=== PATIENT | male | born 1960 | race Caucasian/White ===

== ENCOUNTER 2017-05-24 13:24 | Emergency (ER) | payer OTHER ==
[~2017-05-24] VITALS: Ht 170.2 cm; Wt 86.2 kg
[2017-05-24] MEDS ORDERED: Duoneb 2.5-0.5 M3 ML INH (14:05)
[2017-05-24] MEDS ORDERED: PRED20 PO (14:05)
[2017-05-24] MEDS ORDERED: Vibramycin100 MG PO (14:05)
[2017-05-24] MEDS ORDERED: AEROECLIPSE II1 EACH INH (14:09)
== END 2017-05-24 14:19 | disposition home or self-care (01) ==
LOC: ER 13:24
DX: J44.1 Chronic obstructive pulmonary disease with (acute) exacerbation (principal); F17.200 Nicotine dependence, unspecified, uncomplicated
CPT/HCPCS: 71046; 94640; 99284

== ENCOUNTER 2019-01-28 08:12 | Emergency (ER) | payer OTHER ==
[~2019-01-28] VITALS: Ht 170.2 cm; Wt 94.8 kg
[~2019-01-28 08:12] MED LIST: AEROECLIPSE II1 EACH INH; Duoneb 2.5-0.5 M3 ML INH; PRED20 PO; Vibramycin100 MG PO
[2019-01-28] MEDS ORDERED: Cyclobenzaprine5 MG PO (08:33)
== END 2019-01-28 09:10 | disposition home or self-care (01) ==
LOC: ER 08:12
DX: M54.5 Low back pain (principal); Z79.899 Other long term (current) drug therapy; Z79.52 Long term (current) use of systemic steroids; F17.200 Nicotine dependence, unspecified, uncomplicated
CPT/HCPCS: 99283

== ENCOUNTER 2022-03-16 17:02 | Inpatient (IN) | payer OTHER ==
[~2022-03-16] VITALS: Ht 170.2 cm; Wt 88.4 kg
[~2022-03-16 17:02] MED LIST changes: +ATOR10 PO; +Aspir 8181 MG PO; +Bisoprolol Fumar5 MG PO; +CLOP75 PO; +Cyclobenzaprine5 MG PO; +IBUP600 PO; +LEVO750 PO; +LISI10 PO; +Percocet 5-3251 EACH PO
[2022-03-16 17:47] LABS: Hematocrit 39.7 % (37.0-53.0); Hemoglobin 14.6 g/dL (13.5-17.5); Mean Corpuscular HGB 29.9 pg (26.0-34.0); Mean Corpuscular HGB Conc 36.8 g/dL (31.5-36.5); Mean Corpuscular Volume 81 fL (80-100); Mean Platelet Volume 9.3 fL (9.1-12.4); NRBC ABSOLUTE 0.03 K/mm3 (0.00-0.02); NRBC Auto 0.2 /100 WBC (0.0-0.2); Platelet Count 263 K/mm3 (150-400); RDW Standard Deviation 44.6 fL (35.1-46.3); Red Blood Cell Count 4.89 M/mm3 (4.30-5.90); White Blood Cell Count 19.19 K/mm3 (4.00-11.30)
[2022-03-16 18:16] LABS: BAND PERCENT MAN 7 % (0-8); BASOPHILS PERCENT MAN 0 % (0-2); EOSINOPHILS PERCENT MAN 0 % (0-6); LYMPHOCYTES ABSOLUTE MAN 0.76 K/mm3 (0.84-5.20); LYMPHOCYTES PERCENT MAN 4 % (21-46); MONOCYTES ABSOLUTE MAN 1.91 K/mm3 (0.16-1.47); MONOCYTES PERCENT MAN 10 % (4-13); SEG NEUTROPHILS PERCENT MAN 79 % (41-73); TOTAL CELLS COUNTED 100
[2022-03-16 18:18] LABS: Albumin, Blood 2.7 g/dL (3.4-5.0); Albumin/Globulin Ratio 0.6 (0.8-1.8); Bun/Creatinine Ratio 18.5 (12.0-20.0); Calcium, Blood 8.8 mg/dL (8.5-10.1); Creatinine, Blood 0.65 mg/dL (0.60-1.20); Globulin, Blood 4.6 g/dL (2.2-4.0); Potassium, Blood 3.9 mmol/L (3.5-5.5); Total Protein, Blood 7.3 g/dL (6.4-8.2)
[2022-03-16 18:18] LABS: Influenza A, PCR NEGATIVE (NEGATIVE); Influenza B, PCR NEGATIVE (NEGATIVE); Resp Syncytial Virus, PCR NEGATIVE (NEGATIVE); SARS-Cov-2 (COVID-19) PCR, MMC NEGATIVE (NEGATIVE)
[2022-03-16 18:23] LABS: Base Excess Venous -0.1 mmol/L; Bicarbonate Venous 25.2 mmol/L (24.0-30.0); PCO2 Venous 29.4 mmHg (38-42)
[2022-03-16 20:38] LABS: Source, Urine Clean Catch
[2022-03-16 20:43] LABS: Blood, Urine 4+ (Neg); Glucose Qualitative, Urine Neg (Neg); Ketones, Urine 3+ (Neg); Leukocyte Esterase, Urine 1+ (Neg); Nitrite, Urine Neg (Neg); Protein, Urine 3+ (Neg); Urobilinogen, Urine 4+ (Normal)
[2022-03-16 20:58] LABS: Appearance, Urine Clear (Clear); Bilirubin, Urine 2+ (Neg); Color, Urine Amber (P-Yellow)
[2022-03-16 21:00] LABS: Bacteria Few /hpf; Red Blood Cells, Urine 0-2 /hpf (0-2); Squamous Epithelial Cells Rare /hpf (Few); White Blood Cells, Urine 0-2 /hpf (0-5)
--- NOTE | 2022-03-16 21:20 | NUR ---
ARRIVAL TO PCU6 PT ARRIVED TO PCU6 AT APPROXIMATELY 2115. PT TRANSFERED FROM ER [facility] TO HOSPITAL BED WITH 1 PERSON ASSIST STAND-PIVOT. PT A&Ox3, SLIGHTLY LETHARGIC, STATES IT IS 03/19/22, IS ABLE TO APPROPRIATELY STATE WHERE HE IS AND WHY HE IS HERE. PT ARRIVED ON RA, SpO2 89-91%, PT REPORTED MILD SOB, PLACED PT ON 2L VIA NC, SpO2 INCREASED TO >92%. NOTIFIED RT THAT PT REQUESTED A BREATHING TREATMENT. VSS, BP ELEVATED WITH SBP 150's, ST 100-110's WITH 1ST DEGREE HB, PT DENIES CP/PRESSURE. SPENT 1 HOUR AT PT's BEDSIDE DOING THE ADMISSION SCREENING/HX/ASSESSMENT. ORIENTED PT TO ROOM/UNIT, CALL LIGHT AND HOSPITAL PHONE. BED IN LOWEST POSITION, BED ALARM ON.
[2022-03-17 00:01] LABS: International Normalized Ratio 1.34; Prothrombin Time Results 13.8 Sec (9.7-11.5)
[2022-03-17 00:12] LABS: Free Thyroxine 1.4 ng/dL (0.70-1.60); Thyroid Stimulating Hormone 0.118 uIU/mL (0.360-4.800)
[2022-03-17 00:15] LABS: Bun/Creatinine Ratio 16.4 (12.0-20.0); Creatinine, Blood 0.61 mg/dL (0.60-1.20); Potassium, Blood 3.8 mmol/L (3.5-5.5)
--- NOTE | 2022-03-17 01:06 | NUR ---
UPDATE CALL TO PHYSICIAN TO UPDATE ON CRITICAL LAB VALUE OF Na: 118, ALSO NOTIFIED THAT PT's CIWA WAS 13 AND PT TOLERATED PO LIBRIUM PER EMAR. NO NEW ORDERS AT THIS TIME.
--- NOTE | 2022-03-17 05:17 | NUR ---
SHIFT SUMMARY PT A&Ox3, SLIGHTLY LETHARGIC, STATES IT IS 03/20/22, THOUGH HE IS ABLE TO APPROPRIATELY STATE WHERE HE IS AND WHY HE IS HERE. VSS. BP STABLE, SINUS TACH 100-100's WITH 1st DEGREE HB, DENIES CP/PRESSURE. Sp02> 92% 2L VIA NC, DENIES SOB. PT WITH OCCASIONAL PRODUCTIVE COUGH, MEDICATED WITH PRN TESSALON. CIWA's RANGING FROM 6-13 THIS SHIFT, MANAGING PER EMAR. PT CONTINENT OF URINE AND BOWEL, USES URINAL IND IN BED. PT IS 1 PERSON ASSIST WITH FWW FOR TRANSFERS, SLIGHTLY UNSTEADY ON FEET. BED IN LOWEST POSITION, BED ALARM ON. NO OTHER EVENTS THIS SHIFT, SEE PREVIOUS NOTES. WILL REPORT TO DAY SHIFT RN.
[2022-03-17 05:39] LABS: Hematocrit 36.3 % (37.0-53.0); Mean Corpuscular HGB Conc 35.8 g/dL (31.5-36.5); Mean Corpuscular Volume 84 fL (80-100); Mean Platelet Volume 9.7 fL (9.1-12.4); Platelet Count 192 K/mm3 (150-400); RDW Coefficient Variation 15.1 % (11.7-14.2); RDW Standard Deviation 45.5 fL (35.1-46.3); Red Blood Cell Count 4.34 M/mm3 (4.30-5.90)
[2022-03-17 06:06] LABS: Albumin, Blood 2.2 g/dL (3.4-5.0); Albumin/Globulin Ratio 0.5 (0.8-1.8); Bilirubin, Total 2.3 mg/dL (0.1-1.0); Bun/Creatinine Ratio 18.8 (12.0-20.0); Calcium, Blood 8.3 mg/dL (8.5-10.1); Creatinine, Blood 0.53 mg/dL (0.60-1.20); Globulin, Blood 4.2 g/dL (2.2-4.0); Potassium, Blood 3.8 mmol/L (3.5-5.5); Total Protein, Blood 6.4 g/dL (6.4-8.2)
[2022-03-17 06:18] LABS: BAND PERCENT MAN 47 % (0-8); BASOPHILS PERCENT MAN 0 % (0-2); EOSINOPHILS PERCENT MAN 0 % (0-6); LYMPHOCYTES ABSOLUTE MAN 0.13 K/mm3 (0.84-5.20); LYMPHOCYTES PERCENT MAN 1 % (21-46); MONOCYTES ABSOLUTE MAN 0.78 K/mm3 (0.16-1.47); MONOCYTES PERCENT MAN 6 % (4-13); MYELOCYTE ABSOLUTE MAN 0.13 K/mm3 (0.00-0.00); MYELOCYTE PERCENT MAN 1 % (0-0); NEUTROPHILS ABSOLUTE MAN 12.05 K/mm3 (1.96-9.15); SEG NEUTROPHILS PERCENT MAN 45 % (41-73); TOTAL CELLS COUNTED 100
--- NOTE | 2022-03-17 06:56 | NUR ---
UPDATE JADENAN CALLED TO INSTRUCT THIS RN TO STOP NS Gtt D/T Na CORRECTING TOO QUICKLY. NS IS IN STANDBY MODE NOW.
[2022-03-17 08:10] LABS: Base Excess Venous 1.5 mmol/L; Bicarbonate Venous 25.4 mmol/L (24.0-30.0); pH Blood Venous 7.41 (7.34-7.37)
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
--- NOTE | 2022-03-17 11:12 | NUR ---
CARE ASSUMPTION THIS RN ASSUMED CARE FROM JAVON BEYER AT 0700. VSS. TELE [place]. PATIENT IS ALERT AND ORIENTED TO PLACE, EVENT, MONTH, YEAR, BUT STATED IT WAS MARCH 21. PATIENT REPORTS NO CHEST PAIN/PRESSURE. PATIENT REPORTS NO PAIN. PATIENT REPORTS NO SHORTNESS OF BREATH. SEE SHIFT ASSESSMENT FOR FURTHER DETAILS. PATIENT ABLE TO PERFORM OWN ADLS. PATIENT IS A STAND BY ASSIST WITH MINIMAL ASSISTANCE. PATIENT UNDERSTANDS THE PLAN OF CARE. CIWA 4 THIS AM. PATIENT SITTING IN BEDSIDE CHAIR. CALL LIGHT WITHIN REACH. WILL CONTINUE TO MONITOR AND PROVIDE CARE.
[2022-03-17 12:00] LABS: Bun/Creatinine Ratio 15.2 (12.0-20.0); Calcium, Blood 8.8 mg/dL (8.5-10.1); Creatinine, Blood 0.66 mg/dL (0.60-1.20); Potassium, Blood 3.9 mmol/L (3.5-5.5)
[2022-03-17 17:37] LABS: U Amphetamine Screen Not Detected; U Barbituate Screen Not Detected; U Benzodiazapine Screen DETECTED; U Buprenorphine Screen Not Detected; U Cannabinoids Screen Not Detected; U Cocaine Screen Not Detected; U Methadone Screen Not Detected; U Methamphetamine Screen Not Detected; U Opiates Screen Not Detected; U Oxycodone Screen Not Detected; U Phencyclidine Screen Not Detected; U Propoxyphene Screen Not Detected
[2022-03-17 17:39] LABS: Bun/Creatinine Ratio 26.5 (12.0-20.0); Creatinine, Blood 0.64 mg/dL (0.60-1.20); Potassium, Blood 3.7 mmol/L (3.5-5.5)
--- NOTE | 2022-03-17 18:27 | NUR ---
SHIFT SUMMARY PATIENT NEURO REMAINS INTACT. NO ACUTE CHANGES THIS SHIFT. VSS. CALL LIGHT WITHIN REACH AND SITTING IN CHAIR. PATIENT REQUESTED TO TAKE A SHOWER BEFORE BED THIS EVENING WILL PASS ON TO NEXT REPORT. WILL CONTINUE TO MONITOR AND PROVIDE CARE UNTIL HAND OFF WITH NEXT SHIFT.
--- NOTE | 2022-03-17 19:35 | NUR ---
ASSUMED CARE. AOX3 SITTING UP IN CHAIR, DENIES ANY PAIN OR DISCOMFORT. VERY PLEASANT AND COOPERATIVE. ABLE TO MAKE NEEDS KNOWN. NO TREMORS NOTED, BUT IS SLIGHTLY UNSTEADY ON HIS FEET. CIWA LOW. HE STATES HE HAS QUIET DRINKING SEVERAL TIMES AND NEVER HAD WITHDRAWL SYMPTOMS. ENCOURAGE DRINKING OF FLUIDS, CURRENTLY HAS LOW BP BUT MAP IS >65. LS COARSE, PRODUCTIVE COUGH THICK BRENNER SPUTUM. MILD SOB. SINUS ON MONITOR. DENIES ANY CHEST PAIN. GOOD APPETITE. ABLE TO USE URINAL INDEPENDENTLY. WILL CONTINUE TO MONITOR.
--- NOTE | 2022-03-17 21:00 | NUR ---
SPOKE TO RESIDENT REGARDING DROP IN BP. SHE WILL HOLD TOMORROWS BP MEDS IN AM. IF BP CONTINUES TO DROP T/O NIGHT SHE WANTS A CALL BACK.
[2022-03-17 23:16] LABS: Bun/Creatinine Ratio 33.6 (12.0-20.0); Calcium, Blood 8.6 mg/dL (8.5-10.1); Creatinine, Blood 0.6 mg/dL (0.60-1.20); Potassium, Blood 3.6 mmol/L (3.5-5.5)
--- NOTE | 2022-03-18 05:22 | NUR ---
SHIFT SUMMARY: PT CONTINUES TO REMAIN COOPERATIVE. CIWAS HAVE BEEN 0/10. HAS FOLLOWED DIRECTIONS AND USES CALL LIGHT. DID HAVE DROP IN BP TO THE 80'S, WAS MADE AWARE, WHICH SHE DC'D BLOOD PRESSURE MEDS FOR THIS AM. HIGHEST HE GOT WAS SBP 110. VS WNL. NO PAIN. LS REMAIN COARSE WITH THICK BRENNER SECRETIONS. STILL CONTINUES ON 2L NC WITH GOOD SATS. NO ACUTE CHANGES TO NOTE, CALL LIGHT IS IN REACH.
[2022-03-18 06:07] LABS: BASOPHILS ABSOLUTE AUTO 0.05 K/mm3 (0.00-0.23); BASOPHILS PERCENT AUTO 0 % (0-2); EOSINOPHILS ABSOLUTE AUTO 0.01 K/mm3 (0.00-0.68); EOSINOPHILS PERCENT AUTO 0 % (0-6); Hematocrit 34.6 % (37.0-53.0); Hemoglobin 12.3 g/dL (13.5-17.5); IMMATURE GRAN ABSOLUTE AUTO 0.18 K/mm3 (0.00-0.10); IMMATURE GRAN PERCENT AUTO 2 % (0-1); LYMPHOCYTES ABSOLUTE AUTO 0.79 K/mm3 (0.84-5.20); LYMPHOCYTES PERCENT AUTO 7 % (21-46); MONOCYTES PERCENT AUTO 9 % (4-13); Mean Corpuscular HGB 30.2 pg (26.0-34.0); Mean Corpuscular HGB Conc 35.5 g/dL (31.5-36.5); Mean Corpuscular Volume 85 fL (80-100); Mean Platelet Volume 9.9 fL (9.1-12.4); NEUTROPHILS ABSOLUTE AUTO 9.54 K/mm3 (1.96-9.15); NEUTROPHILS PERCENT AUTO 82 % (41-73); NRBC ABSOLUTE 0.02 K/mm3 (0.00-0.02); NRBC Auto 0.2 /100 WBC (0.0-0.2); Platelet Count 225 K/mm3 (150-400); RDW Coefficient Variation 15.2 % (11.7-14.2); RDW Standard Deviation 47.8 fL (35.1-46.3); Red Blood Cell Count 4.07 M/mm3 (4.30-5.90); White Blood Cell Count 11.67 K/mm3 (4.00-11.30)
[2022-03-18 06:25] LABS: Albumin/Globulin Ratio 0.5 (0.8-1.8); Bun/Creatinine Ratio 36.8 (12.0-20.0); Calcium, Blood 8.6 mg/dL (8.5-10.1); Creatinine, Blood 0.57 mg/dL (0.60-1.20); Globulin, Blood 4.3 g/dL (2.2-4.0); Potassium, Blood 3.8 mmol/L (3.5-5.5); Total Protein, Blood 6.3 g/dL (6.4-8.2)
[2022-03-18] MEDS ORDERED: AMOCLA875 PO (15:33)
[2022-03-18] MEDS ORDERED: AZIT500 PO (15:34)
[2022-03-18] MEDS ORDERED: PRED20 PO (15:36)
--- NOTE | 2022-03-18 16:03 | NUR ---
DISCHARGE/SHIFT SUMMARY THIS RN ASSUMED CARE AT 0700. VSS. PATIENT IS A/OX4. PERRLA. PATIENT REPORTS NO PAIN, CHEST PAIN/PRESSURE OR SHORTNESS OF BREATH. SEE SHIFT ASSESSMENT FOR FURTHER INFORMATION. PATIENT DISCHARGED AT 1600. THIS RN WENT OVER DISCHARGE EDUCATION AND THE IMPORTANCE TO FOLLOW UP WITH PRIMARY CARE PROVIDER. THIS RN WENT OVER ABX THAT THE PATIENT WILL BE TAKING. PATIENT AND PATIENT VERBALIZED UNDERSTANDING. PATIEINT LEFT VIA WHEELCHAIR AND IN NO DISTRESS. PATIENT HAD ALL BELONGINGS WHEN LEAVING.
== END 2022-03-18 15:54 | disposition home or self-care (01) | DRG 871 ==
LOC: ER 17:02 → PCU 19:11
PROVIDERS: Family Medicine; Physician Assistant; Student in an Organized Health Care Education/Training Program; ADMIT Internal Medicine
DX: A41.3 Sepsis due to Hemophilus influenzae (principal); J15.9 Unspecified bacterial pneumonia; J96.01 Acute respiratory failure with hypoxia; E22.2 Syndrome of inappropriate secretion of antidiuretic hormone; R65.20 Severe sepsis without septic shock; F15.10 Other stimulant abuse, uncomplicated; I10 Essential (primary) hypertension; E78.5 Hyperlipidemia, unspecified; I25.10 Atherosclerotic heart disease of native coronary artery without angina pectoris; F10.20 Alcohol dependence, uncomplicated; J43.9 Emphysema, unspecified; E86.0 Dehydration; J20.9 Acute bronchitis, unspecified; F17.210 Nicotine dependence, cigarettes, uncomplicated; Z20.822 Contact with and (suspected) exposure to COVID-19; Z23 Encounter for immunization; Z79.811 Long term (current) use of aromatase inhibitors; Z79.899 Other long term (current) drug therapy; Z79.82 Long term (current) use of aspirin; Z79.02 Long term (current) use of antithrombotics/antiplatelets; Z79.891 Long term (current) use of opiate analgesic; Z98.890 Other specified postprocedural states
CPT/HCPCS: 0241U; 36415; 71045; 80048; 80053; 81001; 82140; 82803; 83605; 83880; 84145; 84295; 84439; 84443; 84484; 85025; 85610; 87040; 87070; 87077; 87086; 87185; 87205; 90686; 93005; 93010; 94640; 94664; 94760; 96361; 96365; 96375; 99285-25; A9270; J0456; J0696; J1650; J2930; J3411; J7030; J7050

== ENCOUNTER 2022-07-30 01:08 | Emergency (ER) | payer OTHER ==
[~2022-07-30] VITALS: Ht 170.2 cm; Wt 86.2 kg
[~2022-07-30 01:08] MED LIST changes: +AMOCLA875 PO; +AZIT500 PO
[2022-07-30 01:47] LABS: BASOPHILS ABSOLUTE AUTO 0.06 K/mm3 (0.00-0.23); BASOPHILS PERCENT AUTO 1 % (0-2); EOSINOPHILS ABSOLUTE AUTO 0.16 K/mm3 (0.00-0.68); EOSINOPHILS PERCENT AUTO 3 % (0-6); Hematocrit 36.1 % (37.0-53.0); Hemoglobin 12.4 g/dL (13.5-17.5); IMMATURE GRAN PERCENT AUTO 0 % (0-1); LYMPHOCYTES ABSOLUTE AUTO 2.14 K/mm3 (0.84-5.20); LYMPHOCYTES PERCENT AUTO 42 % (21-46); MONOCYTES ABSOLUTE AUTO 0.62 K/mm3 (0.16-1.47); MONOCYTES PERCENT AUTO 12 % (4-13); Mean Corpuscular HGB 28.6 pg (26.0-34.0); Mean Corpuscular HGB Conc 34.3 g/dL (31.5-36.5); Mean Corpuscular Volume 83 fL (80-100); Mean Platelet Volume 9.5 fL (9.1-12.4); NEUTROPHILS ABSOLUTE AUTO 2.14 K/mm3 (1.96-9.15); NEUTROPHILS PERCENT AUTO 42 % (41-73); Platelet Count 150 K/mm3 (150-400); RDW Coefficient Variation 15.9 % (11.7-14.2); RDW Standard Deviation 48.8 fL (35.1-46.3); Red Blood Cell Count 4.33 M/mm3 (4.30-5.90); White Blood Cell Count 5.12 K/mm3 (4.00-11.30)
[2022-07-30 02:03] LABS: Albumin, Blood 3.4 g/dL (3.4-5.0); Albumin/Globulin Ratio 0.8 (0.8-1.8); Bilirubin, Total 0.7 mg/dL (0.1-1.0); Bun/Creatinine Ratio 7.7 (12.0-20.0); Calcium, Blood 8.4 mg/dL (8.5-10.1); Creatinine, Blood 0.65 mg/dL (0.60-1.20); Globulin, Blood 4.2 g/dL (2.2-4.0); Potassium, Blood 4.1 mmol/L (3.5-5.5); Total Protein, Blood 7.6 g/dL (6.4-8.2)
[2022-07-30 03:09] LABS: Base Excess Venous -0.7 mmol/L; PCO2 Venous 38.1 mmHg (38-42); pH Blood Venous 7.41 (7.34-7.37)
[2022-07-30 05:00] VITALS: BP 124/79
[2022-07-30] MEDS ORDERED: AZIT250 PO (05:42)
[2022-07-30] MEDS ORDERED: PRED20 PO (05:42)
== END 2022-07-30 05:53 | disposition home or self-care (01) ==
LOC: ER 01:08
PROVIDERS: Student in an Organized Health Care Education/Training Program
DX: R06.02 Shortness of breath (principal); R05.9 Cough, unspecified; J43.9 Emphysema, unspecified; F17.210 Nicotine dependence, cigarettes, uncomplicated; Z79.899 Other long term (current) drug therapy; Z79.82 Long term (current) use of aspirin; Z79.02 Long term (current) use of antithrombotics/antiplatelets
CPT/HCPCS: 36415; 71045; 80053; 82803; 83880; 84484; 85025; 93005; 93010; 94640; 94664; 99284-25; J7512

== ENCOUNTER 2023-02-03 09:21 | Emergency (ER) | payer OTHER ==
[~2023-02-03] VITALS: Ht 170.2 cm; Wt 86.2 kg
[~2023-02-03 09:21] MED LIST changes: +AZIT250 PO
[2023-02-03 10:23] VITALS: BP 120/77
[2023-02-03] MEDS ORDERED: HYDROCODONE-AC1 EA10 PO (11:54)
== END 2023-02-03 12:20 | disposition home or self-care (01) ==
LOC: ER 09:21
DX: S92.901A Unspecified fracture of right foot, initial encounter for closed fracture (principal); W01.0XXA Fall on same level from slipping, tripping and stumbling without subsequent striking against object, initial encounter; Z79.899 Other long term (current) drug therapy; Z79.82 Long term (current) use of aspirin; J43.9 Emphysema, unspecified; F17.210 Nicotine dependence, cigarettes, uncomplicated
CPT/HCPCS: 73630; 99283-25

== ENCOUNTER 2023-12-07 11:19 | Emergency (ER) | payer OTHER ==
[~2023-12-07] VITALS: Ht 170.2 cm; Wt 91.6 kg
[~2023-12-07 11:19] MED LIST changes: +ALBU90OI INH; +DERMACINRX FOL1 EAC2; +HYDROCODONE-AC1 EA10 PO; +INCRUSE ELLIPTA; +SYMBICORT 160-4.6 GM
[2023-12-07 11:41] VITALS: BP 125/85
== END 2023-12-07 14:23 | disposition home or self-care (01) ==
LOC: ER 11:19
DX: M79.604 Pain in right leg (principal); F17.210 Nicotine dependence, cigarettes, uncomplicated; I10 Essential (primary) hypertension; Z79.82 Long term (current) use of aspirin; Z79.02 Long term (current) use of antithrombotics/antiplatelets; Z79.899 Other long term (current) drug therapy
CPT/HCPCS: 73502; 93971; 99283-25

== ENCOUNTER 2024-02-03 21:42 | Observation (INO) | payer OTHER ==
[~2024-02-03] VITALS: Ht 182.9 cm; Wt 100.3 kg
[2024-02-03 22:40] LABS: BASOPHILS ABSOLUTE AUTO 0.04 K/mm3 (0.00-0.23); BASOPHILS PERCENT AUTO 1 % (0-2); EOSINOPHILS ABSOLUTE AUTO 0.19 K/mm3 (0.00-0.68); EOSINOPHILS PERCENT AUTO 3 % (0-6); Hematocrit 20.8 % (37.0-53.0); IMMATURE GRAN ABSOLUTE AUTO 0.02 K/mm3 (0.00-0.10); IMMATURE GRAN PERCENT AUTO 0 % (0-1); LYMPHOCYTES ABSOLUTE AUTO 1.23 K/mm3 (0.84-5.20); LYMPHOCYTES PERCENT AUTO 21 % (21-46); MONOCYTES ABSOLUTE AUTO 0.96 K/mm3 (0.16-1.47); MONOCYTES PERCENT AUTO 17 % (4-13); Mean Corpuscular HGB 19.1 pg (26.0-34.0); Mean Corpuscular HGB Conc 27.9 g/dL (31.5-36.5); Mean Corpuscular Volume 68 fL (80-100); Mean Platelet Volume 9.8 fL (9.1-12.4); NEUTROPHILS PERCENT AUTO 58 % (41-73); NRBC ABSOLUTE 0.02 K/mm3 (0.00-0.02); NRBC Auto 0.3 /100 WBC (0.0-0.2); Platelet Count 274 K/mm3 (150-400); RDW Coefficient Variation 16.6 % (11.7-14.2); RDW Standard Deviation 40.5 fL (35.1-46.3); Red Blood Cell Count 3.04 M/mm3 (4.30-5.90); White Blood Cell Count 5.74 K/mm3 (4.00-11.30)
[2024-02-03 22:42] LABS: Hemoglobin 5.8 g/dL (13.5-17.5)
[2024-02-03 23:00] LABS: Albumin, Blood 3.3 g/dL (3.4-5.0); Albumin/Globulin Ratio 0.9 (0.8-1.8); Bilirubin, Total 0.9 mg/dL (0.1-1.0); Bun/Creatinine Ratio 15.7 (12.0-20.0); Calcium, Blood 8.9 mg/dL (8.5-10.1); Creatinine, Blood 0.7 mg/dL (0.60-1.20); Globulin, Blood 3.7 g/dL (2.2-4.0); Magnesium, Blood 1.9 mg/dL (1.6-2.4); Potassium, Blood 3.9 mmol/L (3.5-5.5)
[2024-02-03 23:37] LABS: International Normalized Ratio 1.02; Prothrombin Time Results 10.9 Sec (9.7-11.5)
[2024-02-03] MEDS ORDERED: Morphine Sulfate 4 MG/1 ML Injection IV ONE (23:55)
[2024-02-04] VITALS (7 sets, daily range): BP systolic 108–139; BP diastolic 73–86
[2024-02-04] MEDS ORDERED: HYDROmorphone HCl/Pf 1MG SYR ONE (00:25)
[2024-02-04] MEDS ORDERED: HYDROmorphone HCl/Pf 1MG SYR IV ONE (00:25)
[2024-02-04] MEDS ORDERED: FLU VACC TS2024-25(6MOS UP)/PF 45 MCG/0.5 ML SYRINGE IM ONE (00:45)
[2024-02-04] MEDS ORDERED: PANT20 PO (01:13)
[2024-02-04] MEDS ORDERED: VITAMIN D5000 UNIT PO (01:15)
[2024-02-04 01:29] LABS: Thyroid Stimulating Hormone 0.852 uIU/mL (0.360-4.800)
[2024-02-04] MEDS ORDERED: NS 1,000 ML IV ONE (01:58)
[2024-02-04] MEDS ORDERED: Piperacillin/Tazobactam Sod 3.375 GM in NS 100 ML IV SCH (03:40)
[2024-02-04] MEDS ORDERED: NS 1,000 ML IV SCH (04:00)
[2024-02-04 04:28] LABS: Source, Urine Clean Catch
[2024-02-04 04:33] LABS: Bilirubin, Urine Neg (Neg); Blood, Urine Neg (Neg); Glucose Qualitative, Urine Neg (Neg); Ketones, Urine Neg (Neg); Leukocyte Esterase, Urine Neg (Neg); Nitrite, Urine Neg (Neg); Protein, Urine Neg (Neg); Specific Gravity, Urine 1.005 (1.003-1.022); Urobilinogen, Urine NORM (Normal); pH, Urine 6.5 (5.0-8.0)
[2024-02-04 04:48] LABS: Appearance, Urine Clear (Clear); Color, Urine Yellow (P-Yellow)
[2024-02-04 05:09] LABS: U Amphetamine Screen Not Detected; U Barbituate Screen Not Detected; U Benzodiazapine Screen Not Detected; U Buprenorphine Screen Not Detected; U Cannabinoids Screen DETECTED; U Cocaine Screen Not Detected; U Methadone Screen Not Detected; U Methamphetamine Screen Not Detected; U Opiates Screen DETECTED; U Oxycodone Screen Not Detected; U Phencyclidine Screen Not Detected
[2024-02-04] MEDS ORDERED: Pantoprazole Sodium 40 MG Injection IV SCH (06:00)
[2024-02-04] MEDS ORDERED: Albuterol 2.5 MG/3 ML VIAL INH PRN (07:20)
--- NOTE | 2024-02-04 08:02 | NUR ---
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 PT A/OX3. PT PRESENTS WITH CONFUSION. UNABLE TO PROVIDE RELIABLE HEALTH HX OR MEDICATION HX. PT HGB ON RIZWAN 5.8; FIRST UNIT OF BLOOD STARTED IN THE ED--TRANSFUSION COMPLETED AT 0522; PT TOLERATED WELL. VITALS OBTAINED AND STABLE. LUNGS CLEAR. SECOND UNIT STARTED AT 0544. VERIFIED CONSENTS AND BLOOD PRODUCT WITH SECOND RN. VITALS MONITORED T/O TRANSFUSION. NOTED PT HAS UPPER AIRWAY WHEEZE--LUNGS CLEAR. PT REPORTS A HX OF ASTHMA AND STATES HE USES DAILY INHALER AND RESCUE INHALER. CALL TO HOSPITALIST; BD PROTOCOL ORDERED. ORIENTED PT TO ROOM AND CALL LIGHT. BED ALARM IN PLACE. PT IS CONFUSED/IMPULSIVE. PT REQUIRES REDIRECTING AND SUPERVISION WHEN OOB. EDUCATED PT ON FALL PREVENTION AND SMOKING/IGNITION POLICY. CALL LIGHT IN PLACE.
[2024-02-04] MEDS ORDERED: Spironolactone 25 MG Tab PO SCH (09:00)
[2024-02-04 10:04] LABS: BASOPHILS ABSOLUTE AUTO 0.03 K/mm3 (0.00-0.23); BASOPHILS PERCENT AUTO 1 % (0-2); EOSINOPHILS ABSOLUTE AUTO 0.16 K/mm3 (0.00-0.68); EOSINOPHILS PERCENT AUTO 4 % (0-6); Hematocrit 26.8 % (37.0-53.0); Hemoglobin 7.8 g/dL (13.5-17.5); IMMATURE GRAN ABSOLUTE AUTO 0.01 K/mm3 (0.00-0.10); IMMATURE GRAN PERCENT AUTO 0 % (0-1); LYMPHOCYTES ABSOLUTE AUTO 0.66 K/mm3 (0.84-5.20); LYMPHOCYTES PERCENT AUTO 16 % (21-46); MONOCYTES ABSOLUTE AUTO 0.71 K/mm3 (0.16-1.47); MONOCYTES PERCENT AUTO 17 % (4-13); Mean Corpuscular HGB 20.7 pg (26.0-34.0); Mean Corpuscular HGB Conc 29.1 g/dL (31.5-36.5); Mean Corpuscular Volume 71 fL (80-100); Mean Platelet Volume 9.4 fL (9.1-12.4); NEUTROPHILS ABSOLUTE AUTO 2.67 K/mm3 (1.96-9.15); NEUTROPHILS PERCENT AUTO 63 % (41-73); Platelet Count 271 K/mm3 (150-400); RDW Coefficient Variation 20.5 % (11.7-14.2); RDW Standard Deviation 50.2 fL (35.1-46.3); Red Blood Cell Count 3.77 M/mm3 (4.30-5.90); White Blood Cell Count 4.24 K/mm3 (4.00-11.30)
[2024-02-04 10:32] LABS: Albumin, Blood 3.4 g/dL (3.4-5.0); Albumin/Globulin Ratio 0.9 (0.8-1.8); Bilirubin, Total 1.8 mg/dL (0.1-1.0); Bun/Creatinine Ratio 10.5 (12.0-20.0); Calcium, Blood 8.7 mg/dL (8.5-10.1); Creatinine, Blood 0.85 mg/dL (0.60-1.20); Globulin, Blood 3.6 g/dL (2.2-4.0); Potassium, Blood 4.1 mmol/L (3.5-5.5)
[2024-02-04] MEDS ORDERED: SPIR25 PO (12:07)
--- NOTE | 2024-02-04 15:20 | NUR ---
CONCERNS/DISCHARGE NOTE: THIS RN HAD CONCERNS THIS AM REGARDING PT SAFETY WITH DISCHARGING. PT EXPRESSED TO THIS RN THAT HE WAS WANTING TO GO HOME AT TIME OF AM ASSESSMENT. DR. BLANTON PLACED DISCHARGE ORDERS AND ORDER FOR PALLIATIVE CARE TEAM TO FILL OUT POLST PRIOR TO D/C. WITH AM ASSESSMENT, PT REMAINED TO HAVE 3+ EDEMA IN LOWER EXTREMETIES. PT RECEIVED ONE DOSE OF ALDACTONE THIS AM. PT CONTINUED TO HAVE INCREASED WHEEZING AND DIFFICULT WALKING D/C BLE EDEMA AND BILAT HIP PAIN. PALLIATIVE ARRIVED TO PT ROOM TO FILL OUT POLST WITH PT. AFTER PT MEETING WITH PALLIATIVE TEAM, PALLIATIVE AGREED WITH THIS RN THAT PT DID NOT APPEAR SAFE TO DISCHARGE. SPOKE WITH SATURATOR REGARDING MATTER AND STATED TO EDUCATE PT RISKS OF GOING HOME. THIS RN ARRIVED TO PT ROOM FOR EDUCATION. SPOKE WITH PT REGARDING LABS WHEN ARRIVING TO HOSPITAL AND RECEIVING TWO UNITS PRBC WITH A CONTINUED LOW HEMOGLOBIN. ALSO SPOKE WITH PT IN DEPTH ABOUT HYPOTENSION, EDEMA, AND THE INABILITY TO WALK SAFELY. PT AWARE OF RISKS INVOLVED WITH GOING HOME AND VERBALLY EXPRESSED WISHES TO CONTINUE GOING HOME. CASE MANAGMENT IN ROOM AT TIME OF DISCUSSION AND ASKED PT IF HE WOULD BE COMFORTABLE IF HOME HEALTH WOULD HELP WITH CARE. PT AGREEABLE TO HOME HEALTH AT TIME OF DISCUSSION. CASE MANAGEMENT THEN CALLED DR. BLANTON FOR HOME HEALTH ORDERS. THIS RN MADE FOLLOW-UP APPOINTMENT FOR PT WITH PCP ON 02-06-2024 @1110. PT RECEIVED CALL FROM PCP TO CONFIRM APPOINTMENT PRIOR TO D/C. ATTEMPTED TO CALL TO MAKE FOLLOW-UP APPOINTMENT WITH DR. DANIELS. VOICEMAIL STATED OFFICE IS CLOSED UNTIL TOMORROW 02-05-2024. PT AWARE TO CALL OFFICE TOMORROW FOR FOLLOW-UP APPOINTMENT. NEW MEDICATION FAXED TO [facility]. TELE SENT BACK. IV REMOVED BY THIS RN W/O COMPLICATIONS.
--- NOTE | 2024-02-04 16:55 | NUR ---
REVIEWED CODE STATUS OPTIONS WITH PATIENT. DNR VS CPR. PT REQUESTS DNR. THOUROUGH EDUCATIONS ON EACH LEVEL OF MEDICAL CARE OPTIONS. PT REPORTS NOT WANTING TO BE INTUBATED OR HAVE A FEEDING TUBE. SELECTIVE MEDICAL INTERVENTION ELECTED. POLST FORM FILLED OUT TO REFLECT DNR/SLECTIVE MEDICAL INTERVENTION.
[2024-03-04] MEDS ORDERED: Aspir 8181 MG PO (13:13)
[2024-03-04] MEDS ORDERED: ATOR10 PO (13:13)
[2024-03-04] MEDS ORDERED: SYMBICORT 160-4.6 GM (13:14)
[2024-03-04] MEDS ORDERED: PANT20 PO (13:15)
[2024-03-04] MEDS ORDERED: VITAMIN D5000 UNIT PO (13:15)
[2024-03-04] MEDS ORDERED: CLOP75 PO (13:15)
[2024-03-04] MEDS ORDERED: Prinivil10 MG PO (13:15)
[2024-03-04] MEDS ORDERED: SPIR25 PO (13:22)
[2024-03-04] MEDS ORDERED: ANORO ELLIPTA1 EAC1 IH (13:22)
== END 2024-02-04 15:13 | disposition home health service (06) ==
LOC: ER 21:42 → MEDS 21:43
PROVIDERS: Emergency Medicine; Family Medicine; Student in an Organized Health Care Education/Training Program; ADMIT Internal Medicine
DX: G93.41 Metabolic encephalopathy (principal); C22.7 Other specified carcinomas of liver; K70.30 Alcoholic cirrhosis of liver without ascites; E87.1 Hypo-osmolality and hyponatremia; R55 Syncope and collapse; J44.9 Chronic obstructive pulmonary disease, unspecified; I10 Essential (primary) hypertension; E78.5 Hyperlipidemia, unspecified; Z87.891 Personal history of nicotine dependence; Z79.82 Long term (current) use of aspirin
CPT/HCPCS: 36415; 36430; 70450; 71046; 74177; 76882; 80053; 81003; 82570; 83690; 83735; 83880; 83930; 83935; 84300; 84443; 84484; 85025; 85610; 85730; 86850; 86900; 86901; 86920; 93005; 93010; 93922; 94760; 96365; 96374; 96375; 99285-25; A9270; G0378; J1170; J1171; J2270; J2470; J2543; J7030; P9016; Q9967

== ENCOUNTER → 2024-02-11 | Outpatient (CLI) | payer OTHER ==
[~2024-02-11] MED LIST changes: +PANT20 PO; +SPIR25 PO; +VITAMIN D5000 UNIT PO
[2024-02-11 19:38] LABS: BASOPHILS ABSOLUTE AUTO 0.08 K/mm3 (0.00-0.23); BASOPHILS PERCENT AUTO 1 % (0-2); EOSINOPHILS ABSOLUTE AUTO 0.24 K/mm3 (0.00-0.68); EOSINOPHILS PERCENT AUTO 3 % (0-6); Hematocrit 31.1 % (37.0-53.0); Hemoglobin 9.2 g/dL (13.5-17.5); IMMATURE GRAN ABSOLUTE AUTO 0.01 K/mm3 (0.00-0.10); IMMATURE GRAN PERCENT AUTO 0 % (0-1); LYMPHOCYTES ABSOLUTE AUTO 1.67 K/mm3 (0.84-5.20); LYMPHOCYTES PERCENT AUTO 21 % (21-46); MONOCYTES ABSOLUTE AUTO 1.13 K/mm3 (0.16-1.47); MONOCYTES PERCENT AUTO 14 % (4-13); Mean Corpuscular HGB 20.9 pg (26.0-34.0); Mean Corpuscular HGB Conc 29.6 g/dL (31.5-36.5); Mean Corpuscular Volume 71 fL (80-100); Mean Platelet Volume 9.9 fL (9.1-12.4); NEUTROPHILS ABSOLUTE AUTO 4.85 K/mm3 (1.96-9.15); NEUTROPHILS PERCENT AUTO 61 % (41-73); Platelet Count 363 K/mm3 (150-400); RDW Coefficient Variation 21.2 % (11.7-14.2); RDW Standard Deviation 52.3 fL (35.1-46.3); White Blood Cell Count 7.98 K/mm3 (4.00-11.30)
[2024-02-11 21:25] LABS: Alanine Aminotransfer (ALT/SGP 38 U/L (12-78); Albumin, Blood 3.8 g/dL (3.4-5.0); Albumin/Globulin Ratio 0.9 (0.8-1.8); Alk Phos 111 U/L (50-136); Anion Gap 9 mmol/L (3-11); Aspartate Aminotrans (AST/SGOT 39 U/L (12-37); Bilirubin, Total 0.6 mg/dL (0.1-1.0); Blood Urea Nitrogen 16 mg/dL (8-24); Bun/Creatinine Ratio 18.5 (12.0-20.0); CHOL/HDL RATIO 1.7; CO2, Blood 25 mmol/L (21-32); Calcium, Blood 9.4 mg/dL (8.5-10.1); Chloride, Blood 99 mmol/L (98-108); Cholesterol 94 mg/dL (50-200); Creatinine, Blood 0.86 mg/dL (0.60-1.20); Globulin, Blood 4.3 g/dL (2.2-4.0); Glomerular Filtration Rate 97 (60-); Glucose, Blood 103 mg/dL (70-99); HDL Cholesterol 55 mg/dL (>39); Iron Serum 14 ug/dL (65-175); LDL/HDL RATIO 0.5; Low Density Lipoprotein Chol 28 mg/dL (0-110); Percent Saturation 2.2 % (20.0-50.0); Potassium, Blood 4.2 mmol/L (3.5-5.5); Sodium, Blood 129 mmol/L (136-145); Total Iron Binding Capacity 645 ug/dL (250-450); Total Protein, Blood 8.1 g/dL (6.4-8.2); Triglycerides 57 mg/dL (30-160); Very Low Density Lipoprot Chol 11 mg/dL (6-32)
== END ==
LOC: LAB SHORT 19:18 → LAB 19:18
PROVIDERS: Nurse Practitioner Family
DX: C22.0 Liver cell carcinoma (principal); D63.0 Anemia in neoplastic disease
CPT/HCPCS: 80053; 80061; 83540; 83550; 85025

== ENCOUNTER → 2024-04-23 | Outpatient (CLI) | payer OTHER ==
[~2024-04-23] MED LIST changes: +ANORO ELLIPTA1 EAC1 IH; +Prinivil10 MG PO
[2024-04-23 14:22] LABS: BASOPHILS ABSOLUTE AUTO 0.05 K/mm3 (0.00-0.23); BASOPHILS PERCENT AUTO 1 % (0-2); EOSINOPHILS PERCENT AUTO 4 % (0-6); Hematocrit 34.9 % (37.0-53.0); Hemoglobin 10.6 g/dL (13.5-17.5); IMMATURE GRAN ABSOLUTE AUTO 0.02 K/mm3 (0.00-0.10); IMMATURE GRAN PERCENT AUTO 0 % (0-1); LYMPHOCYTES ABSOLUTE AUTO 1.37 K/mm3 (0.84-5.20); LYMPHOCYTES PERCENT AUTO 17 % (21-46); MONOCYTES ABSOLUTE AUTO 1.06 K/mm3 (0.16-1.47); MONOCYTES PERCENT AUTO 13 % (4-13); Mean Corpuscular HGB Conc 30.4 g/dL (31.5-36.5); Mean Corpuscular Volume 76 fL (80-100); Mean Platelet Volume 10.3 fL (9.1-12.4); NEUTROPHILS ABSOLUTE AUTO 5.22 K/mm3 (1.96-9.15); NEUTROPHILS PERCENT AUTO 65 % (41-73); Platelet Count 266 K/mm3 (150-400); RDW Coefficient Variation 21.3 % (11.7-14.2); RDW Standard Deviation 58.6 fL (35.1-46.3); Red Blood Cell Count 4.61 M/mm3 (4.30-5.90); White Blood Cell Count 8.02 K/mm3 (4.00-11.30)
[2024-04-23 14:43] LABS: Percent Saturation 10.3 % (20.0-50.0)
== END ==
LOC: LAB 10:00 → LAB SHORT 10:00
PROVIDERS: Internal Medicine Hematology & Oncology
DX: E61.1 Iron deficiency (principal)
CPT/HCPCS: 82728; 83540; 83550; 85025

== ENCOUNTER 2024-05-09 09:52 | Day surgery (SDC) | payer OTHER ==
[~2024-05-09] VITALS: Ht 167.6 cm; Wt 94.8 kg
[~2024-05-09 09:52] MED LIST changes: +Lactated Ringer's 1,000 ML IV SCH
[2024-05-09] MEDS ORDERED: OXYC10TA19 PO (10:18)
[2024-05-09] MEDS ORDERED: ANORO ELLIPTA1 EAC1 INH (10:18)
[2024-05-09] MEDS ORDERED: FUROSEMIDE20 MG PO (10:19)
[2024-05-09] MEDS ORDERED: KLOR-CON 1010 ME9 PO (10:20)
[2024-05-09] MEDS ORDERED: Cyclobenzaprine5 MG PO (10:20)
[2024-05-09 10:30] VITALS: BP 155/93
[2024-05-09] MEDS ORDERED: Lidocaine HCl 4% 5 ML SDA INH SCH (10:30)
[2024-05-09] MEDS ORDERED: propofoL 100 ML IV ONE (10:36)
--- NOTE | 2024-05-09 10:40 | NUR ---
05/09/24 1040 Juliane Sandoval History, Chart, Medications and Allergies reviewed before start of procedure.2% LIDOCAINE JELLY WITH 5 DROPS KALEE-SYNEPHRINE 0.5% APPLIED TO BILATERAL NARES WITH COTTON TIP APPLICATOR. 2% LIDOCAINE SOLUTION SPRAYED TO OROPHARYNX USING ATOMIZATION DEVICE UNTIL GAG REFLEX GONE. MONITOR INTACT WITH CONTINUOUS PULSE OXIMETRY, CONTINUOUS END TITAL CO2, AND INTERMITTENT BLOOD PRESSURE.O2 VIA POM INTACT THROUGHOUT SEDATION/PROCEDURE.
--- NOTE | 2024-05-09 10:43 | NUR ---
PATIENT STATES HE COMPLETED ALL COLON PREP BUT UNSURE WHAT HIS LAST FEW BMS LOOKED LIKE BECAUSE HE DIDN'T LOOK AT THIS. HE DESCRIBES HIS BMS CLEAR BUT SOME BROWN COLOR.
[2024-05-09 12:16] VITALS: BP 107/81
[2024-05-09 12:31] VITALS: BP 122/83
[2024-05-09 12:46] VITALS: BP 121/72
--- NOTE | 2024-05-09 12:48 | NUR ---
PT UP GETTING DRESSED WITH STEADY GAIT. ALL BELONINGS RETURNED. HAS DISCHARGE INSTRUCITONS WITH RESTARTING ELIQUIS TONIGHT. ALL B ELONINGS RETURNED TO PT. W/C. RIDE HOME. VSS.
== END 2024-05-09 23:00 | disposition home or self-care (01) ==
LOC: ORSCMMR 09:52 → ORD 11:15 → ORSCMMR 23:00
PROVIDERS: Specialist
PROC: 0DB98ZX Excision of Duodenum, Via Natural or Artificial Opening Endoscopic, Diagnostic (ICD-10-PCS; principal; 2024-05-09 11:15)
PROC: 3E0H8KZ Introduction of Other Diagnostic Substance into Lower GI, Via Natural or Artificial Opening Endoscopic (ICD-10-PCS; principal; 2024-05-09 11:15)
PROC: 0DBP8ZX Excision of Rectum, Via Natural or Artificial Opening Endoscopic, Diagnostic (ICD-10-PCS; principal; 2024-05-09 11:15)
DX: D50.9 Iron deficiency anemia, unspecified (principal); K21.9 Gastro-esophageal reflux disease without esophagitis; C22.0 Liver cell carcinoma; D12.8 Benign neoplasm of rectum; Z80.0 Family history of malignant neoplasm of digestive organs; K44.9 Diaphragmatic hernia without obstruction or gangrene; K64.8 Other hemorrhoids; B19.20 Unspecified viral hepatitis C without hepatic coma; K74.60 Unspecified cirrhosis of liver; I10 Essential (primary) hypertension; E78.5 Hyperlipidemia, unspecified; I25.10 Atherosclerotic heart disease of native coronary artery without angina pectoris; J44.9 Chronic obstructive pulmonary disease, unspecified; I25.2 Old myocardial infarction; Z79.899 Other long term (current) drug therapy; E66.9 Obesity, unspecified; Z68.33 Body mass index [BMI] 33.0-33.9, adult
CPT/HCPCS: 88305; J2003; J2704; J7120

== ENCOUNTER → 2024-06-25 | Outpatient (CLI) | payer OTHER ==
[~2024-06-25] MED LIST changes: +ANORO ELLIPTA1 EAC1 INH; +FUROSEMIDE20 MG PO; +KLOR-CON 1010 ME9 PO; -Lactated Ringer's 1,000 ML IV SCH; +OXYC10TA19 PO
[2024-06-25 15:04] LABS: BASOPHILS ABSOLUTE AUTO 0.06 K/mm3 (0.00-0.23); BASOPHILS PERCENT AUTO 1 % (0-2); EOSINOPHILS ABSOLUTE AUTO 0.21 K/mm3 (0.00-0.68); EOSINOPHILS PERCENT AUTO 2 % (0-6); Hematocrit 41.5 % (37.0-53.0); Hemoglobin 13.4 g/dL (13.5-17.5); IMMATURE GRAN ABSOLUTE AUTO 0.04 K/mm3 (0.00-0.10); IMMATURE GRAN PERCENT AUTO 1 % (0-1); LYMPHOCYTES ABSOLUTE AUTO 1.39 K/mm3 (0.84-5.20); LYMPHOCYTES PERCENT AUTO 16 % (21-46); MONOCYTES ABSOLUTE AUTO 0.78 K/mm3 (0.16-1.47); MONOCYTES PERCENT AUTO 9 % (4-13); Mean Corpuscular HGB 25.4 pg (26.0-34.0); Mean Corpuscular HGB Conc 32.3 g/dL (31.5-36.5); Mean Corpuscular Volume 79 fL (80-100); Mean Platelet Volume 9.8 fL (9.1-12.4); NEUTROPHILS ABSOLUTE AUTO 6.28 K/mm3 (1.96-9.15); NEUTROPHILS PERCENT AUTO 72 % (41-73); Platelet Count 252 K/mm3 (150-400); RDW Coefficient Variation 21.7 % (11.7-14.2); Red Blood Cell Count 5.28 M/mm3 (4.30-5.90); White Blood Cell Count 8.76 K/mm3 (4.00-11.30)
== END ==
LOC: LAB SHORT 13:20 → LAB 13:20
PROVIDERS: Internal Medicine Hematology & Oncology
DX: E61.1 Iron deficiency (principal)
CPT/HCPCS: 85025

== ENCOUNTER 2024-07-30 08:41 | Day surgery (SDC) | payer OTHER ==
[2024-07-30] VITALS (22 sets, daily range): BP systolic 101–144; BP diastolic 69–93
[~2024-07-30] VITALS: Ht 167 cm; Wt 96.9 kg
[~2024-07-30 08:41] MED LIST changes: -KLOR-CON 1010 ME9 PO; +POTA8 PO
[2024-07-30] MEDS ORDERED: Tranexamic Acid 100 ML IV SCH (09:05)
[2024-07-30] MEDS ORDERED: Lactated Ringer's 1,000 ML IV SCH ×2 (09:05→14:55)
[2024-07-30] MEDS ORDERED: OxyCODONE HCL 10 MG TABCR PO SCH (09:05)
[2024-07-30] MEDS ORDERED: Acetaminophen 500 MG Tab PO SCH ×2 (09:05→16:00)
[2024-07-30] MEDS ORDERED: CeFAZolin Sodium 2,000 MG in NS 100 ML IV SCH ×2 (09:05→20:00)
[2024-07-30] MEDS ORDERED: Chlorhexidine Mouth Care 15 ML UDC MT SCH (09:05)
[2024-07-30] MEDS ORDERED: Ropivacaine 0.5% HCl/Pf 123.125 MG,EPINEPHrine HCL 0.25 MG,Ketorolac Tromethamine 15 MG... INFIL SCH (09:05)
[2024-07-30] MEDS ORDERED: Vancomycin HCL 1,000 MG in NS 250 ML IV SCH (09:05)
--- NOTE | 2024-07-30 10:12 | NUR ---
History, Chart, Medications and Allergies reviewed before start of procedure. Patient confirms NPO status and agrees with scheduled surgery. Patient States Post-Procedure ride home has been arranged. Patient reports completing Chlorhexadine shower X5 prior to admission to hospital. Lungs clear T/O to Auscultation. Pt has reading glasses with him for anesthesia consent.
[2024-07-30] MEDS ORDERED: propofoL 20 ML IV ONE (10:39)
[2024-07-30] MEDS ORDERED: Midazolam HCl 1MG / ML 2ML Vial ONE (10:39)
[2024-07-30] MEDS ORDERED: FentaNYL Citrate 50 MCG/ML 2 ML Injection ONE ×2 (10:39→13:51)
[2024-07-30] MEDS ORDERED: Bisacodyl 10 MG Supp PR PRN (10:40)
[2024-07-30] MEDS ORDERED: Rocuronium Bromide 10 MG/ML 5ML Injection IV ONE (10:41)
[2024-07-30] MEDS ORDERED: Magnesium Hydroxide Conc 10 ML UDC PO PRN (10:45)
[2024-07-30] MEDS ORDERED: DiphenhydrAMINE HCL 25 MG Cap PO PRN (10:45)
[2024-07-30] MEDS ORDERED: Metoclopramide HCl 5MG / ML 2ML Vial IV PRN (10:45)
[2024-07-30] MEDS ORDERED: HYDROmorphone HCl/Pf 1MG SYR IV PRN ×3 (10:45→11:55)
[2024-07-30] MEDS ORDERED: Promethazine HCl 25 MG Tab PO PRN (10:50)
[2024-07-30] MEDS ORDERED: Prochlorperazine Edisylate 10 mg Vial IV PRN (10:50)
[2024-07-30] MEDS ORDERED: Ondansetron HCl 2 MG / ML 2ML Vial IV PRN ×2 (10:50→11:55)
[2024-07-30] MEDS ORDERED: OxyCODONE HCL 5 MG TAB PO PRN ×2 (10:50)
[2024-07-30] MEDS ORDERED: Ondansetron HCl 2 MG / ML 2ML Vial ONE (11:19)
[2024-07-30] MEDS ORDERED: Dexamethasone Sod Phos 10 MG/ML 1ML VIAL ONE (11:19)
[2024-07-30] MEDS ORDERED: Vancomycin HCl 1000 MG ADDvantage ONE (11:40)
[2024-07-30] MEDS ORDERED: FentaNYL Citrate 50 MCG/ML 2 ML Injection IV PRN ×2 (11:50)
[2024-07-30] MEDS ORDERED: Labetalol HCL 5 MG/ML 4ML Injection (Single Dose) IV PRN (11:50)
[2024-07-30] MEDS ORDERED: Scopolamine Hydrobromide Patch TOP SCH (11:50)
[2024-07-30] MEDS ORDERED: ePHEDrine Sulfate 50 MG/ML 1ML Injection IV PRN (11:55)
[2024-07-30] MEDS ORDERED: HYDROmorphone HCl/Pf 1MG SYR ONE ×3 (12:51→14:21)
[2024-07-30] MEDS ORDERED: Sugammadex Sodium 200 MG/2ML SDV (100 MG/ML) ONE (13:14)
[2024-07-30] MEDS ORDERED: Lactated Ringer's 1,000 ML IV ONE (13:40)
[2024-07-30] MEDS ORDERED: Ketorolac Tromethamine 30mg Vial ONE ×2 (14:21→14:57)
[2024-07-30] MEDS ORDERED: Ipratropium/Albuterol SulF 2.5-0.5MG/3 ML Amp INH SCH (15:35)
--- NOTE | 2024-07-30 15:55 | NUR ---
PT ARRIVED TO RM 217 AT 1515. ORIENTED TO USE OF CALL LIGHT. PROVIDED WATER AND SNACKS. DRESSING TO R HIP X3. SS DRAINAGE NOTED TO ALL THREE DRESSINGS. PT REPORTED HAVING PAIN BUT COULD NOT RATE ON PAIN SCALE. VSS. CALL LIGHT IN REACH.
--- NOTE | 2024-07-30 17:04 | NUR ---
summary no acute changes since arriving to room from pacu. tolerating po. medicated per orders for pain. pt visiting with guest. did not rate reassessment on pain scale but stated pain was "better than it was before." vss. call light in reach.
[2024-07-30] MEDS ORDERED: Ketorolac Tromethamine 15mg Vial IV SCH (18:00)
[2024-07-30] MEDS ORDERED: Trimethoprim/Sulfamethoxazole DS Tab PO SCH (21:00)
[2024-07-30] MEDS ORDERED: Docusate Sodium 100 MG Cap PO SCH (21:00)
[2024-07-30] MEDS ORDERED: Cyclobenzaprine HCl 10 MG Tab PO PRN (21:00)
[2024-07-30] MEDS ORDERED: Vancomycin HCL 1,000 MG in NS 250 ML IV ONE (22:00)
[2024-07-31 05:15] VITALS: BP 101/72
[2024-07-31 05:46] LABS: BASOPHILS ABSOLUTE AUTO 0.03 K/mm3 (0.00-0.23); BASOPHILS PERCENT AUTO 0 % (0-2); EOSINOPHILS ABSOLUTE AUTO 0.04 K/mm3 (0.00-0.68); EOSINOPHILS PERCENT AUTO 0 % (0-6); Hematocrit 32.5 % (37.0-53.0); Hemoglobin 10.4 g/dL (13.5-17.5); IMMATURE GRAN ABSOLUTE AUTO 0.05 K/mm3 (0.00-0.10); IMMATURE GRAN PERCENT AUTO 0 % (0-1); LYMPHOCYTES PERCENT AUTO 10 % (21-46); MONOCYTES ABSOLUTE AUTO 1.64 K/mm3 (0.16-1.47); MONOCYTES PERCENT AUTO 12 % (4-13); Mean Corpuscular HGB 27.3 pg (26.0-34.0); Mean Corpuscular Volume 85 fL (80-100); Mean Platelet Volume 10.6 fL (9.1-12.4); NEUTROPHILS ABSOLUTE AUTO 10.41 K/mm3 (1.96-9.15); NEUTROPHILS PERCENT AUTO 77 % (41-73); Platelet Count 181 K/mm3 (150-400); RDW Coefficient Variation 18.9 % (11.7-14.2); RDW Standard Deviation 59.1 fL (35.1-46.3); Red Blood Cell Count 3.81 M/mm3 (4.30-5.90); White Blood Cell Count 13.47 K/mm3 (4.00-11.30)
[2024-07-31] MEDS ORDERED: Pantoprazole Sodium 20 MG Tab PO SCH (06:00)
[2024-07-31 06:06] LABS: Bun/Creatinine Ratio 19.5 (12.0-20.0); Calcium, Blood 8.8 mg/dL (8.5-10.1); Creatinine, Blood 0.82 mg/dL (0.60-1.20); Magnesium, Blood 1.8 mg/dL (1.6-2.4); Potassium, Blood 3.7 mmol/L (3.5-5.5)
--- NOTE | 2024-07-31 06:56 | NUR ---
NOC SUMMARY- PT PAIN MANAGED WELL. PT EATING AND VOIDING WELL. PT AMBULATORY. PT DRESSING HAVE SOME SHADOWING AND INTACT. CALL LIGHT IN REACH.
[2024-07-31 07:15] VITALS: BP 106/67
[2024-07-31] MEDS ORDERED: Lisinopril 10 MG Tab PO SCH (09:00)
[2024-07-31] MEDS ORDERED: Cholecalciferol 1000 Unit Tablet (=25MCG) PO SCH (09:00)
[2024-07-31] MEDS ORDERED: Atorvastatin 10 MG Tab PO SCH (09:00)
[2024-07-31] MEDS ORDERED: Metoprolol Succinate 50 MG TABCR PO SCH (09:00)
[2024-07-31] MEDS ORDERED: ACET500 PO (09:18)
[2024-07-31] MEDS ORDERED: BACTRIM DS TAB1 EAC6 PO (09:19)
[2024-07-31] MEDS ORDERED: HYDMOR2 PO (09:20)
[2024-07-31] MEDS ORDERED: ONDA4ODT MM (09:20)
--- NOTE | 2024-07-31 11:26 | NUR ---
DISCHARGE PATIENT PASSES THERAPY, TOLERATING PO AND PAIN MEDICATION. DENIES N/V. VSS, ALL INSTRUCTIONS READ AND SIGNED, EXTRA DRESSING IN FOLDER, ALL PRESCRIPTIONS PICKED UP AND PATIENT IS WHEELED OUT TO PRIVATE CAR.
[2024-07-31] MEDS ORDERED: Clopidogrel Bisulfate 75 MG Tab PO SCH (19:00)
== END 2024-07-31 10:55 | disposition home or self-care (01) ==
LOC: ORSCMMR 08:41 → ORD 11:00 → ORSCMMR 11:00 → SURS 14:28 → ORSCMMR 07-31 10:55
PROVIDERS: Orthopaedic Surgery
PROC: 0SR90JA Replacement of Right Hip Joint with Synthetic Substitute, Uncemented, Open Approach (ICD-10-PCS; principal; 2024-07-30 11:00)
DX: M16.11 Unilateral primary osteoarthritis, right hip (principal); I10 Essential (primary) hypertension; E78.5 Hyperlipidemia, unspecified; I25.10 Atherosclerotic heart disease of native coronary artery without angina pectoris; Z79.899 Other long term (current) drug therapy; Z79.02 Long term (current) use of antithrombotics/antiplatelets; B19.20 Unspecified viral hepatitis C without hepatic coma; K74.69 Other cirrhosis of liver
CPT/HCPCS: 36415; 72170; 80048; 83735; 85025; 94640; 94760; 97110; 97116; 97162; 97165; 97530; 97535; A9270; C1713; C1776; J0171; J0690; J0735; J1100; J1171; J1885; J2250; J2405; J2470; J2704; J2795; J3010; J3370; J7050; J7120